=== PATIENT | male | born 1955 | race Caucasian/White ===

== ENCOUNTER 2021-01-20 10:27 | Emergency (ER) | payer OTHER ==
[~2021-01-20] VITALS: Ht 188 cm; Wt 103.9 kg
[2021-01-20 10:32] VITALS: BP 142/91
[2021-01-20] MEDS ORDERED: LIDOCAINE 2% 20 ML VIAL. ONE (10:45)
--- NOTE | 2021-01-20 11:43 | PHYS DOC ---
Past History Past Medical History: Hypertension Past Surgical History: No Surgical History Alcohol Use: Heavy Drug Use: None Adult General Chief Complaint Chief Complaint: LACERATION/AVULSION HPI HPI Patient is a pleasant 65-year-old male who presents for right index finger laceration. 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 Reports trying to hold up heavy PVC pipe box that fell and subsequently caused horizontal lacerations to his right index finger with mild involvement of right middle finger. Nothing known makes better or worse. Pain is well controlled without taking anything. He has full sensation of all digits, has no major complaints at present. Patient presents with hemostasis achieved with pressure in route. Tetanus is up-to-date Review of Systems Review of Systems Fourteen body systems of review of systems have been reviewed. See HPI for pertinent positives and negative responses, other cantor all other systems are negative, non-pertinent or non-contributory Current Medications Current Medications Current Medications Medications (Trade) Dose Ordered Sig/Romero Start Time Stop Time Status Last Admin Dose Admin Lidocaine HCl 20 ml STK-MED ONCE 01/20/21 10:45 01/20/21 10:45 DC Allergies Allergies Allergies Coded Allergies Type Severity Reaction Last Updated Verified lisinopril Allergy Unknown 11/12/14 No Physical Exam Physical Exam Constitutional: Well developed, well nourished, no acute distress, non-toxic appearance. HENT: Normocephalic, atraumatic, bilateral external ears normal, oropharynx moist, no oral exudates, nose normal. Eyes: PERRLA, EOMI, conjunctiva normal, no discharge. Neck: Normal range of motion, no tenderness, supple, no stridor. Cardiovascular: Heart rate regular per monitor Lungs & Thorax: No respiratory distress or accessory muscle use, bilateral chest rise Abdomen: Abdomen soft, non-tender, bowel sounds present in all quadrants, no guarding or rebound, nonacute abdomen. Skin: Warm, dry, no erythema, no rash. Back: No tenderness, no CVA tenderness. Extremities: No tenderness, no cyanosis, no clubbing, ROM intact, no edema. Cap refill of all digits in right upper extremity less than 3. Patient has full motor and sensory function of each digit and right hand. [place]-shaped laceration measuring a total length of 2.2 cm present on ventral portion of right index finger without tendon involvement. Mild superficial abrasion of right middle index finger on and right middle finger. Bilateral radial pulses intact bilaterally Neurologic: Alert and oriented X 3, grossly normal motor & sensory function, no focal deficits noted. Psychologic: Affect normal, judgement normal, mood normal. Current Patient Data Vital Signs Vital Signs Date Time Temp Pulse Resp B/P (MAP) Pulse Ox O2 Delivery O2 Flow Rate FiO2 01/20/21 10:32 97.2 62 16 142/91 (108) 96 Room Air EKG EKG [] Radiology/Procedures Radiology/Procedures [] Heart Score C/O Chest Pain: N/A Risk Factors: Risk Factors: DM, Current or recent (<one month) smoker, HTN, HLP, family histo ry of CAD, obesity. Risk Scores: Risk Factors: DM, Current or recent (<one month) smoker, HTN, HLP, family history of CAD, obesity. Course & Med Decision Making Course & Med Decision Making Hemodynamically stable patient with history and physical exam consistent with simple laceration of right index finger with subsequent right middle finger abrasion. No concerning signs or symptoms of tendon/deep tissue/concerning musculature involvement of right index finger Total of x7 simple interrupted 6.0 sutures placed with great tissue cosmesis and wound closure. Educated patient extensively on wound care and need for repeat evaluation and suture removal in upcoming 7 to 10 days time. Tetanus up-to-date. No indication for antibiotics Strict return precautions were discussed with good understanding by patient, all questions and concerns addressed prior to ER departure in improved condition Dragon Disclaimer Dragon Disclaimer This electronic medical record was generated, in whole or in part, using a voice recognition dictation system. Laceration Repair Lac Repair Laceration #1: 2.2 centimeter linear wound. A time out was undertaken to determine that this was the correct patient and the correct procedure for this patient. The patients laceration was prepped and cleansed in the usual fashion It was then copiously irrigated with normal saline with high pressure and high volume. The wound was explored in a clear and bloodless field to the base of the wound. There was no evidence of underlying fracture or foreign body. X7 nonabsorbable sutures were placed in a simple interrupted fashion to close the wound. Excellent care was taken to achieve maximal cosmesis. The patient tolerated this procedure well there were no observed nor reported complications. Departure Departure: Impression: Primary Impression: Laceration of index finger of right hand without complication Disposition: 01 DC HOME SELF CARE/HOMELESS Condition: IMPROVED Referrals: ILIR GONZALEZ MD (PCP) Patient Instructions: Laceration Care, Adult Additional Instructions: You were seen for a laceration. Keep the area clean and dry. You should return to the ED or your PCP office to get your sutures removed in 7-10 days. Return to the ED immediately if you develop any signs of infection like increased pain, redness, fever, or purulent (pus) drainage. Do not take baths, submerge the wo und, or use a hot tub until your stitches are removed and the wound is healed. LAUREN QUINN DO Jan 20, 2021 11:43
== END 2021-01-20 11:49 | disposition home or self-care (01) ==
LOC: ER 10:27
DX: S61.210A Laceration without foreign body of right index finger without damage to nail, initial encounter (principal); I10 Essential (primary) hypertension; F10.20 Alcohol dependence, uncomplicated; Y90.9 Presence of alcohol in blood, level not specified; Z88.6 Allergy status to analgesic agent; W20.8XXA Other cause of strike by thrown, projected or falling object, initial encounter; Y93.89 Activity, other specified; Y92.89 Other specified places as the place of occurrence of the external cause; Y99.8 Other external cause status
CPT/HCPCS: 12001; 99282

== ENCOUNTER 2021-01-27 13:42 | Emergency (ER) | payer OTHER ==
[~2021-01-27] VITALS: Ht 188 cm; Wt 103.9 kg
[2021-01-27 13:42] VITALS: BP 134/75
[2021-01-27] MEDS ORDERED: BACITRACIN ZINC TOPICAL OINT PACKET. TP ONE (14:00)
--- NOTE | 2021-01-27 14:06 | PHYS DOC ---
Past History Past Medical History: Hypertension (YAIR ALLEN APRN) Past Surgical History: No Surgical History (YAIR ALLEN APRN) Alcohol Use: Heavy Drug Use: None (YAIR ALLEN APRN) Adult General Chief Complaint Chief Complaint: SUTURE/STAPLE REMOVAL HPI HPI Patient is a 65-year-old male who presents emergency department for removal of sutures to his right pointer finger. Patient states they have been in for 7 days, has had no complications at home, has had no decreased sensation or pain to his finger. Patient states he has been daily cleansing. Patient denies any other physical complaints or physical concerns. Denies fever or chills. (YAIR ALLEN APRN) Review of Systems Review of Systems 14 body systems of review of systems have been reviewed. See HPI for pertinent positives and negative responses, otherwise all other systems are negative, nonpertinent or noncontributory. (YAIR ALLEN APRN) Current Medications Current Medications Current Medications Medications (Trade) Dose Ordered Sig/Romero Start Time Stop Time Status Last Admin Dose Admin Bacitracin (Bacitracin Topical Pkt) 1 pkt 1X ONCE 01/27/21 14:00 01/27/21 14:01 UNV (YAIR ALLEN APRN) Allergies Allergies Allergies Coded Allergies Type Severity Reaction Last Updated Verified lisinopril Allergy Unknown 11/12/14 No (YAIR ALLEN APRN) Physical Exam Physical Exam Constitutional: Well developed, well nourished, no acute distress, non-toxic appearance. 65-year-old male in no apparent distress. HENT: Normal cephalic, atraumatic, no abnormalities noted visually. Eyes: No discharge appreciated, conjunctivae appear normal, patient tracking normally. Neck: Not assessed Cardiovascular: No cyanosis appreciated, distal cap refill less than 2 seconds Lungs & Thorax: No respiratory distress, no audible adventitious lung sounds appreciated. Abdomen: Not assessed Skin: Warm, dry, no erythema, no rash. See extremity note Back: Not assessed Extremities: No tenderness, no cyanosis, no clubbing, ROM intact, no edema. Right pointer finger palmar aspect at DIP joint area has well healing suture repair, 7 sutures intact, no signs of infectious process, distal cap refill less than 2 seconds, no loss of movement of phalangeal joints. No swelling appreciated. Edges well approximated. Neurologic: Alert and oriented X 3, normal motor function, normal sensory function, no focal deficits noted. Psychologic: Affect normal, judgement normal, mood normal. (YAIR ALLEN APRN) Current Patient Data Vital Signs Vital Signs Date Time Temp Pulse Resp B/P (MAP) Pulse Ox O2 Delivery O2 Flow Rate FiO2 01/27/21 13:42 98.0 56 16 134/75 (94) 97 Room Air (YAIR ALLEN APRN) EKG EKG [] (YAIR ALLEN APRN) Radiology/Procedures Radiology/Procedures [] (YAIR ALLEN APRN) Heart Score C/O Chest Pain: No Risk Factors: Risk Factors: DM, Current or recent (<one month) smoker, HTN, HLP, family history of CAD, obesity. Risk Scores: Risk Factors: DM, Current or recent (<one month) smoker, HTN, HLP, family history of CAD, obesity. (YAIR ALLEN APRN) Course & Med Decision Making Course & Med Decision Making Pertinent Labs and Imaging studies reviewed. (See chart for details) 65-year-old male, vital signs reviewed, presents emergency department for suture removal. Physical examination revealed well-healing suture repaired right hand pointer finger with 7 sutures. No signs of infectious process. Sutures removed by ED nursing staff. Patient tolerated well. Laceration repair site dressed with bacitracin ointment and Band-Aid. Discussed with patient ongoing wound care at home. Follow-up with primary care as needed or if infectious process begins, patient verbal understanding of discharge home instructions, follow-up with PCP, wound infection concerns, return to ER precautions and concerns, discharged home without incident. (YAIR ALLEN APRN) Course & Med Decision Making I oversaw on the above date of service of this patient and discussed the care with the TUTORING MANAGER. I agree with the findings, plan of care, and disposition as documented. Electronically signed, Lauren Quinn DO (LAUREN QUINN DO) Mark Disclaimer Dragon Disclaimer This electronic medical record was generated, in whole or in part, using a voice recognition dictation system. (YAIR ALLEN APRN) Departure Departure: Impression: Primary Impression: Encounter for removal of sutures Disposition: 01 DC HOME SELF CARE/HOMELESS Condition: GOOD Referrals: ILIR GONZALEZ MD (PCP) Additional Instructions: We have removed 7 sutures from your right index finger. There are no concerning signs and symptoms of infection upon my examination. Please continue to wash daily, apply antibiotic ointment over suture site, and Band-Aid until healing process is complete. Please follow-up with your primary care for ongoing concerns of your left finger wound, return to the emergency department for worsening symptoms or other concerns. EMERGENCY DEPARTMENT GENERAL DISCHARGE INSTRUCTIONS Thank you for coming to [facility] (ED) today and trusting us with you care. We trust that you had a positivie experience in our Emergency Department. If you wish to speak to the department management, you may call the director at [phone]. YOUR FOLLOW UP INSTRUCTIONS ARE FOLLOWS: 1. Do you have a private Doctor? If you do not have a private doctor, please ask for a resource list of physicians or clinics that may be able to assist you with follow up care. 2. The Emergency Physician has interpreted your x-rays. The X-Ray specialist will also review them. If there is a change in the findings, you will be notified in 48 hours when at all possible. 3. A lab test or culture has been done, your results will be reviewed and you will be notified if you need a change in treatment. ADDITIONAL INSTRUCTIONS AND INFORMATION: 1. Your care today has been supervised by a physician who is specially trained in emergency care. Many problems require more than one evaluation for a complete diagnosis and treatment. We recommend that you schedule your follow up appointment as recommended to ensure complete treatment of you illness or injury. If you are unable to obtain follow up care and continue to have a problem, or if your condition worsens, we recommend that you return to the ED. 2. We are not able to safely determine your condition over the phone nor are we able to give sound medical advice over the phone. For these safety reasons, if you call for medical advice we will ask you to come to the ED for further evaluation. 3. If you have any questions regarding these discharge instructions please call the ED at [phone]. SAFETY INFORMATION: In the interest of safety, wellness, and injury prevention; we encourage you to wear your sealbelt, if you smoke; quite smoking, and we encourage family to use a protective helmet for bicycling and other sporting events that present an increased risk for head injury. IF YOUR SYMPTOMS WORSEN OR NEW SYMPTOMS DEVELOP, OR YOU HAVE CONCERNS ABOUT YOUR CONDITION; OR IF YOUR CONDITION WORSENS WHILE YOU ARE WAITING FOR YOUR FOLLOW UP APPOINTMENT; EITHER CONTACT YOUR PRIMARY CARE DOCTOR, THE PHYSICIAN WHOSE NAME AND NUMBER YOU WERE GIVEN, OR RETURN TO THE ED IMMEDIATELY. YAIR ALLEN APRN Jan 27, 2021 14:06 LAUREN QUINN DO Jan 28, 2021 21:33
== END 2021-01-27 14:18 | disposition home or self-care (01) ==
LOC: ER 13:42
DX: S61.210D Laceration without foreign body of right index finger without damage to nail, subsequent encounter (principal); Z88.8 Allergy status to other drugs, medicaments and biological substances; I10 Essential (primary) hypertension; F10.20 Alcohol dependence, uncomplicated; X58.XXXD Exposure to other specified factors, subsequent encounter; Y90.9 Presence of alcohol in blood, level not specified
CPT/HCPCS: 99282